=== PATIENT | female | born 1960 | race Caucasian/White ===

== ENCOUNTER 2016-10-16 21:10 | Emergency (ER) ==
[2016-10-17] MEDS ORDERED: XYLOCAINE-MPF 1% INJ ONE (00:10)
[2016-10-17] MEDS ORDERED: DECADRON IM ONE (00:10)
[2016-10-17] MEDS ORDERED: ROCEPHIN IM ONE (00:10)
--- NOTE | 2016-10-17 00:10 | PROVIDER DOCUMENTATION ---
HPI-General Adult - General Chief Complaint: Cold Symptoms Stated Complaint: SORE THROAT/N/V Time Seen by Provider: 10/16/16 23:38 Source: patient Allergies/Adverse Reactions: Patient Allergies Allergy/AdvReac Type Severity Reaction Status Date / Time codeine AdvReac Mild ITCHING Verified 08/28/16 21:32 Home Medications: Home Medication List Medication Instructions Recorded Confirmed Last Taken Type Atenolol/Chlorthalidone 1 each PO DAILY 10/17/13 08/28/16 08/27/16 09:00 History [Atenolol-Chlorthalidone 100-25] Citalopram [Celexa] 40 mg PO BID 10/17/13 08/28/16 08/27/16 09:00 History Ranitidine [Zantac] 150 mg PO DAILY 12/03/13 08/28/16 08/27/16 09:00 History Buspirone HCl 10 mg PO TID 02/17/16 08/28/16 08/27/16 09:00 History Furosemide [Lasix] 20 mg PO DAILY 08/28/16 08/28/16 08/27/16 09:00 History Omeprazole [Prilosec] 40 mg PO DAILY #30 capsule. 08/30/16 Unknown Rx Sucralfate [Carafate Liquid] 1 gm PO Q6H #120 udc 08/30/16 Unknown Rx Azithromycin [Zithromax Z-Carlos] 250 mg PO DIRECTED #1 pkg 10/17/16 Unknown Rx Methylprednisolone [Medrol Dosepak] 4 mg PO DIRECTED #1 package 10/17/16 Unknown Rx - History of Present Illness -Gen Adult Nature of Presenting Problems: Pt is a 56 y/o F c chief complaint of cough, fever, shortness of breath x 5 days c associated body aches and chills. Pt states her sister had the Flu last week and had the same symptoms. On arrival, pt has a low grade fever but appears to be in no distress. Review of Systems - Adult - REVIEW OF SYSTEMS - ADULT Constitutional: reports: see HPI, chills, fever Eyes: reports: no symptoms reported. denies: blurred vision, double vision Ears, Nose, Mouth & Throat: reports: no symptoms reported. denies: ear pain, nose pain, throat pain Cardiovascular: reports: no symptoms reported. denies: chest pain, orthopnea Respiratory: reports: cough. denies: pleurisy, shortness of breath Gastrointestinal: reports: no symptoms reported. denies: abdominal pain, nausea Genitourinary: reports: no symptoms reported. denies: dysuria, hematuria Musculoskeletal: reports: no symptoms reported. denies: joint pain, joint swelling Integumentary: reports: no symptoms reported. denies: hives, itching, rash Neurological: reports: no symptoms reported. denies: numbness, paresthesia Psychiatric: reports: no symptoms reported. denies: anxiety, emotional problems Endocrine: reports: no symptoms reported. denies: cold intolerance, heat intolerance Hematologic/Lymphatic: reports: no symptoms reported. denies: blood clots, low blood count Allergic/Immunologic: reports: no symptoms reported. denies: allergic reactions , food allergy All Other Systems: Reviewed and Negative Past History - Adult - PAST MEDICAL HISTORY-ADULT Review of Records: reports: Old Records Reviewed, Nursing Assessment Review, Medications Reviewed, Social history reviewed & non-contributory. Major Childhood Illnesses: reports: denies history Cardiovascular: reports: HTN Respiratory: reports: denies history Gastrointestinal: reports: denies history Obstetrical/Gynecological: reports: denies history Genitourinary: reports: denies history Musculoskeletal: reports: denies history Neurological: reports: denies history Psychiatric: reports: anxiety, depression Endocrine/Immune: reports: denies history Other Conditions: reports: denies history - PRIOR SURGERIES/PROCEDURES Surgical/Procedure History: reports: cholecystectomy, hysterectomy, tonsillectomy, back/neck - IMMUNIZATION STATUS Childhood Immunizations: See Nurse Assessment Flu Vaccine: See Nurse Assessment - FAMILY HISTORY Family History: reviewed, not pertinent - SOCIAL HISTORY Smoking: denies Substance Use: none/never Alcohol Use Frequency: never Physical Exam-General - PHYSICAL EXAM-ADULT Initial Vital Signs Reviewed: Yes - CONSTITUTIONAL General Appearance: alert, mild distress - EYES Eyes: PERRL/EOMI, pink conjunctivae, fundi clear, no AV nicking - HEAD, EARS, NOSE, MOUTH & THROAT HENMT: normocephalic/atraumatic, moist mucous membranes, normal ENT inspection, TMs normal - NECK Neck: non-tender - RESPIRATORY Respiratory: chest non-tender, lungs clear, normal breath sounds. negative: no pleuratic chest pain, no respiratory distress, no accessory muscle use, respiratory distress, decreased breath sounds, accessory muscle use, crackles, rales, rhonchi, stridor, wheezing, dull on percussion, prolonged expiration, pain on inspiration, plerual rub, retractions, splinting, decreased rate, increased rate, crepitus - CARDIOVASCULAR Cardiovascular: normal peripheral pulses, regular rate, rhythm, no edema - GASTROINTESTINAL (ABDOMEN) Abdominal Exam: normal bowel sounds, non tender, soft - LYMPHATIC Lymphatic: no adenopathy - MUSCULOSKELETAL Back Exam: normal inspection Extremity: normal range of motion, non-tender, normal gait - SKIN Integumentary: normal color, normal turgor, warm/dry - NEUROLOGIC Neurologic: grossly normal, no motor/sensory deficits - PSYCHIATRIC Psych/Mental Status: normal mood/affect, normal thought content, normal thought process, oriented x 3 Progress - PLAN OF CARE/RESULTS Progress/Plan/Lab Results: Orders Category Date Time Status CHEST-2 VIEWS [RAD] Stat Exams 10/16/16 21:[address] Stat Lab 10/16/16 21:[address] Stat Lab 10/16/16 21:15 Completed CefTRIAXONE [Rocephin] Med 10/17/16 00:10 Once 1 gm IM NOW ONE Dexamethasone [Decadron] Med 10/17/16 00:10 Once 10 mg IM NOW ONE Lidocaine 1% Pf [Xylocaine-Mpf 1%] Med 10/17/16 00:10 Once 5 ml INJ NOW ONE Laboratory Tests 10/16/16 10/16/16 21:15 21:15 Influenza A (Rapid) NEGATIVE Influenza B (Rapid) NEGATIVE Group A Strep Rapid NEGATIVE Vital Signs - 24 hr 10/16/16 21:12 Temperature 99.6 F Pulse Rate 75 Respiratory 20 Rate Blood Pressure 142/75 O2 Sat by Pulse 96 Oximetry Departure - Departure Time of Disposition Order: 00:11 DIAGNOSIS: URI (upper respiratory infection) Qualifiers: URI type: unspecified URI Qualified Code(s): J06.9 - Acute upper respiratory infection, unspecified Disposition: HOME 01 Certified Medical Emergency: Emergent Condition: Stable Additional Instructions: ED Follow Up Instructions: You have been treated by a care provider in the Emergency Department. These instructions are being provided to you so you can have an understanding of how to care for yourself upon discharge. Upon discharge from the Emergency Department, you are responsible for making arrangements for follow-up care by a physician of your choice. Take all prescribed medications as directed. Return to the Emergency Department immediately for any new or worsening symptoms. You may call the Physician Referral phone number at [phone] to obtain a list of Physicians who are taking new patients. Prescriptions: Methylprednisolone [Medrol Dosepak] 4 mg PO DIRECTED #1 package Azithromycin [Zithromax Z-Carlos] 250 mg PO DIRECTED #1 pkg Referrals: Marlon Cardoza [Primary Care Provider] - Forms: Return to School/Parent Work Instructions: Azithromycin tablets, Upper Respiratory Infection, Adult, Easy-to -Read, Methylprednisolone tablets Attestation - Physician/ RYNE Attestation Patient care was provided by Advanced Practice Provider:: Yes Advanced Practice Provider:: Amarjit Blackman Advanced Practice Provider documentation review:: The Mid-level provider documentation, treatment plan and medical decision making was reviewed by the physician who agrees with all treatment and medical decision making by the P.
[2016-10-17 00:34] VITALS: BP 117/71
--- NOTE | 2016-10-17 07:39 | Diag Imaging Result Document ---
PROCEDURE NAME: CHEST-2 VIEWS - 10/16/2016 FRONTAL AND LATERAL CHEST, TWO VIEWS: COMPARISON: 08/28/2016. FINDINGS: The lungs are well expanded. The heart is not enlarged. The vessels are not distended. There are no infiltrates. No pleural effusions. IMPRESSION: No pneumonia.
== END 2016-10-17 00:45 | disposition home or self-care (01) ==
LOC: P.ED 21:10
DX: J06.9 Acute upper respiratory infection, unspecified (principal); R05 Cough; R50.9 Fever, unspecified; R06.02 Shortness of breath; I10 Essential (primary) hypertension; Z79.899 Other long term (current) drug therapy
CPT/HCPCS: 71020; 87081; 87430; 87804; 96372; J0696; J1100

== ENCOUNTER 2016-11-08 18:58 | Inpatient (IN) ==
[2016-11-08] MEDS ORDERED: ZOFRAN IV ONE (19:51)
[2016-11-08] MEDS ORDERED: DILAUDID IV ONE (19:51)
[2016-11-08 20:13] LABS: MANUAL DIFF NEEDED? NO
[2016-11-08 20:17] LABS: BASO% 0.7 % (0.0-0.8); EOS% 5.8 % (0.0-10.0); HEMATOCRIT 37.8 % (37.0-47.0); HEMOGLOBIN 12.1 g/dL (12.0-16.0); IMM GRAN# 0.01 X1000 (0.0-0.04); IMM GRAN% 0.1 % (0.0-0.5); LYMPH# 2.64 X1000 (1.2-3.4); LYMPH% 30.6 % (20.5-51.1); MCH 24.4 PG (27-31); MCV 76.2 FL (81-99); MONO# 1.02 X1000 (0.11-0.59); MONO% 11.8 % (1.7-9.3); MPV 9.2 FL (7.4-10.4); PLT 261 X1000 (130-400); RBC 4.96 XMIL (4.2-5.4)
--- NOTE | 2016-11-08 20:32 | EKG Report ---
Test Performed on : 11/08/2016 8:07:14 PM Test Reason : CHEST PAIN Blood Pressure : / mmHG Vent. Rate : 060 BPM Atrial Rate : 060 BPM P-R Int : 152 ms QRS Dur : 080 ms QT Int : 450 ms P-R-T Axes : 030 002 013 degrees QTc Int : 450 ms Normal sinus rhythm. Nonspecific ST and T wave abnormality Abnormal ECG When compared with ECG of 30-AUG-2016 11:02, No significant change was found Unconfirmed Result
[2016-11-08 20:36] LABS: AMYLASE 61 U/L (20-200); LIPASE 27 U/L (13-60)
[2016-11-08 20:51] LABS: AGAP 11; ALBUMIN 4.2 g/dL (3.5-5.0); ALKALINE PHOSPHATASE 62 U/L (32-104); BUN 7 mg/dL (8-22); CALCIUM 9.2 mg/dL (8.8-10.2); CHLORIDE 95 mmol/L (98-107); CK PROFILE 110 U/L (24-173); COSMO 272; GOT 19 U/L (10-30); GPT 14 U/L (10-36); MAGNESIUM 2.1 mg/dL (1.5-2.7); POTASSIUM 2.5 mmol/L (3.5-5.1); SODIUM 137 mmol/L (136-145); TCO2 31 mmol/L (25-35); TOTAL PROTEIN 7.1 g/dL (6.3-8.3)
[2016-11-08] MEDS ORDERED: POTASSIUM CHLORIDE 10 MEQ/SWI 10 MEQ/100 ML IVPB IV ONE (20:52)
[2016-11-08] MEDS ORDERED: NS 1,000 ML ONE (20:54)
[2016-11-08] MEDS ORDERED: NS 1,000 ML IV ONE (20:55)
[2016-11-08 21:04] LABS: INR 0.99 (0.86-1.15); PROTIME 13.4 Seconds (12.1-15.5)
[2016-11-08 21:05] LABS: PTT PL 32.5 Seconds (22.6-43.9)
[2016-11-09] MEDS ORDERED: NS 1,000 ML IV ONE (00:58)
[2016-11-09] MEDS ORDERED: MORPHINE IV PRN ×2 (00:58→07:26)
[2016-11-09] MEDS ORDERED: TYLENOL PO PRN (00:58)
[2016-11-09] MEDS ORDERED: ZOFRAN IV PRN (00:58)
[2016-11-09] MEDS ORDERED: POTASSIUM CHLORIDE 40 MEQ/SWI 40 MEQ/100 ML IVPB IV ONE (01:01)
--- NOTE | 2016-11-09 01:10 | Diag Imaging Result Document ---
PROCEDURE NAME: CT ABD/PELVIS W/ IV CONT ONLY - 11/08/2016 STUDY: CT abdomen and pelvis with intravenous contrast. There is fatty infiltration of the liver. Normal spleen, pancreas, gallbladder, and adrenal glands. Normal enhancement of the kidneys. No hydronephrosis. Normal aorta. No bowel obstruction. Normal appendix. No abscess. The uterus has been removed. No pelvic mass. The urinary bladder is minimally distended. There has been prior surgery to the lower back. IMPRESSION: 1. Mild fatty infiltration of the liver. 2. No bowel obstruction. 3. Normal appendix. 4. No abscess. 5. Hysterectomy. A preliminary report was given at 9:42 p.m.
[2016-11-09 07:30] VITALS: BP 112/72
--- NOTE | 2016-11-09 08:44 | Diag Imaging Result Document ---
PROCEDURE NAME: CHEST-2 VIEWS - 11/08/2016 FRONTAL AND LATERAL CHEST, TWO VIEWS: COMPARISON; 10/16/2016. FINDINGS: The lungs are well expanded. The heart is not enlarged. The vessels are not distended. No pneumonia. No pleural effusions. No free air beneath the diaphragm. IMPRESSION: No acute abnormality.
[2016-11-09] MEDS ORDERED: KLOR-CON PO ONE ×2 (09:08→09:11)
[2016-11-09 09:24] LABS: IRON SATURATION 9 %; TIBC 285 ug/dL; TOTAL IRON 25 ug/dL (49-151); UNBOUND IRON 260 ug/dL (112-346)
[2016-11-09] MEDS ORDERED: TESSALON PO SCH (09:30)
[2016-11-09] MEDS ORDERED: ROBITUSSIN-DM PO PRN (10:02)
--- NOTE | 2016-11-09 13:48 | HISTORY AND PHYSICAL ---
CHIEF COMPLAINT: Nonproductive cough, stating "I have had a cough and cold for about a month. I got better for 2-3 days and then it came back." HISTORY OF PRESENTING ILLNESS: This is a 56-year-old female who initially presented to the ER for a cough and cold symptoms that she has had on and off for about a month that has not improved. Workup showed a potassium of 2.5 and iron of 25. Chest x-ray showed no acute abnormality. Abdomen and pelvic CT showed no bowel obstruction. Normal appendix and no abscesses. She was admitted for further evaluation and treatment. PAST MEDICAL HISTORY: Asthma, bronchitis, hypertension, anxiety, and depression. PAST SURGICAL HISTORY: Back surgery, tonsillectomy, hysterectomy, and esophagus stretch. FAMILY HISTORY: Unremarkable. SOCIAL HISTORY: She currently lives with her . She denies any tobacco, alcohol, or drug use. ALLERGIES: Codeine. HOME MEDICATIONS: 1. Atenolol/chlorthalidone 1 p.o. daily. 2. Buspirone 10 mg p.o. t.i.d. 3. Celexa 40 mg p.o. b.i.d. 4. Lasix 20 mg p.o. daily. 5. Prilosec 40 mg p.o. daily. LABORATORY DATA: White blood cell count of 8.63, hemoglobin of 12.1, hematocrit 37.8, platelets 261,000. PT and INR of 13.4 and 0.99 with a D-dimer of less than 0.22. Sodium of 137, potassium 2.5, chloride 85, CO2 of 31. BUN of 7, creatinine of 0.9. Glucose of 100. Creatine kinase of 110. Troponin of less than 0.010. ProBNP of 190. Amylase of 61, lipase 27. Chest x-ray showed no acute abnormality. Abdomen and pelvic CT showed mild fatty infiltration of the liver. No bowel obstruction. Normal appendix. No abscesses. EKG: Normal sinus rhythm at 60. REVIEW OF SYSTEMS: She denied any fever, chills, blurred vision, dizziness, chest pain. She has had a nonproductive cough. She denies any abdominal pain, constipation, diarrhea, burning or hurting with urination. PHYSICAL EXAMINATION: VITAL SIGNS: On arrival, temperature of 98.3 degrees, pulse 65, respirations 18, blood pressure 149/84, saturating 96% on room air. GENERAL: This is a 56-year-old female who is lying in the bed and answers questions appropriately. HEENT: Normocephalic and atraumatic. Pupils are equal, round, and reactive to light. The extraocular movements are intact. Oropharynx and nares are clear. NECK: Supple. LUNGS: Clear to auscultation bilaterally with equal lung expansion and chest wall movement. HEART: Regular rate and rhythm. No murmurs, rubs, or gallops. ABDOMEN: Soft, nontender, nondistended. Bowel sounds are present x4 quadrants. EXTREMITIES: There is no clubbing, cyanosis, or edema. NEUROLOGICAL: The cranial nerves 2-12 are grossly intact. ADMISSION DIAGNOSES: 1. Upper respiratory infection. 2. Hypokalemia. 3. Hypertension. PLAN: She was admitted, placed on telemetry. She was supplemented with potassium yesterday, and her potassium level this morning came up 3, and we gave her 40 mEq more p.o., gave Robitussin p.r.n. Dictated by STEVEN Erickson for Geovanny Chong MD cc: STEVEN Erickson MD
--- NOTE | 2016-11-09 19:11 | DISCHARGE SUMMARY ---
ADMISSION DATE: 11/09/2016 DISCHARGE DATE: 11/09/2016 ADMISSION DIAGNOSES: 1. Hypokalemia. 2. Upper respiratory infection. 3. Hypertension. 4. Some iron-deficiency anemia. DISCHARGE DIAGNOSES: 1. Hypokalemia. 2. Upper respiratory infection. 3. Hypertension. 4. Some iron-deficiency anemia. SUMMARY OF FINDINGS: This is a 56-year-old female who initially presented to the ER for cough. Workup was essentially negative except she had a potassium of 2.5 that was supplemented in the ER and this a.m. her potassium level came up to 3.0. We gave her another 40 mEq of potassium. Chest x-ray showed no acute abnormality. We did an abdomen and pelvic CT as well that showed no bowel obstruction, normal appendix, no abscesses, mild fatty infiltration of the liver. We gave her some Robitussin p.r.n. for her cough. Her white blood cell count was normal. D-dimer was less than 0.22 so it was felt that she could be discharged home. DISCHARGE MEDICATIONS: Atenolol/chlorthalidone 100/25 one p.o. daily, Tessalon Perles 100 mg p.o. t.i.d. #15, buspirone 10 mg p.o. t.i.d., Celexa 40 mg p.o. b.i.d., Lasix 20 mg p.o. daily, Prilosec 40 mg p.o. daily and potassium 10 mEq p.o. daily #30 with no refills. FOLLOWUP: She will follow up with her primary care physician Glen Cardoza in 1 week. DISCHARGE INSTRUCTIONS: All discharge instructions were reviewed with the patient and she verbalized understanding. TIME SPENT: A 35-minute discharge. Dictated by STEVEN Erickson for Geovanny Chong MD cc: STEVEN Erickson MD
[2016-11-10] MEDS ORDERED: KLOR-CON PO SCH (09:00)
--- NOTE | 2016-12-06 19:19 | ED EKG INTERP ---
This chart was entered by Soo Guillen Scribe, acting as scribe for Michele Allen DO. EKG Interpretation - EKG Time of EKG reading by physician:: 20:07 EKG Read and Signed by:: Michele Allen EKG Interpretation (*Must complete 3 of following elements*): Abnormal Rate: 60 Rhythm: NSR QRS: normal MT Interval: normal ST Wave: non-specific ST changes (AND T WAVE ABNORMALITY) This chart was documented by the indicated scribe, (Soo Guillen Scribe) and accurately reflects the services I performed and decisions made by Alejandro kingston Deepak K., DO, as attested by the provider's signature.
--- NOTE | 2016-12-06 19:22 | PROVIDER DOCUMENTATION ---
This chart was entered by Soo Guillen Scribe, acting as scribe for Michele Allen DO. HPI-Abdominal Pain/GI Problem - General Chief Complaint: Cough Stated Complaint: SOB/COUGH/VOMITING Time Seen by Provider: 11/08/16 19:46 Source: patient Allergies/Adverse Reactions: Patient Allergies Allergy/AdvReac Type Severity Reaction Status Date / Time codeine AdvReac Mild ITCHING Verified 11/15/16 22:57 Home Medications: Home Medication List Medication Instructions Recorded Confirmed Last Taken Type Atenolol/Chlorthalidone 1 each PO DAILY 10/17/13 11/15/16 11/15/16 History [Atenolol-Chlorthalidone 100-25] Citalopram [Celexa] 40 mg PO BID 10/17/13 11/15/16 11/08/16 08:00 History Buspirone HCl 10 mg PO TID 02/17/16 11/15/16 11/08/16 11:55 History Furosemide [Lasix] 20 mg PO DAILY 08/28/16 11/15/16 11/08/16 08:00 History Omeprazole [Prilosec] 40 mg PO DAILY #30 capsule. 08/30/16 11/15/16 11/08/16 08:00 Rx Acetaminophen [Tylenol] 650 mg PO Q6H PRN PRN #0 tablet 11/09/16 11/15/16 Unknown Rx Benzonatate [Tessalon] 100 mg PO 0800,1500,2300 #15 11/09/16 11/15/16 Unknown Rx capsule Potassium Chloride E.r. [Klor-Con] 10 meq PO DAILY #30 tablet 11/09/16 11/15/16 Unknown Rx Albuterol Sulfate [Albuterol 2 puff IH Q4-6H PRN PRN #1 11/15/16 Unknown Rx Sulfate Hfa] hfa.aer.ad Benzonatate [Tessalon] 200 mg PO TID PRN PRN #40 capsule 11/15/16 Unknown Rx Cyclobenzaprine [Flexeril] 10 mg PO TID PRN #20 tablet 11/15/16 Unknown Rx Hydrocodone/Acetaminophen [[place] 1 each PO Q4-6H PRN PRN #20 tablet 11/15/16 Unknown Rx 7.5-325 Tablet] Meloxicam [Mobic] 15 mg PO DAILY PRN #30 tablet 11/15/16 Unknown Rx - History of Present Illness-ABD Nature of Presenting Problems: PT IS A 56YOF PRESENTING TO THE ED C/O ABD PAIN. PT STATES SHE HAS RECENTLY BEEN TREATED FOR URI SYMPTOMS BUT TODAY SHE IS HAVING ABD PAIN, N/V/D, SOB, CONGESTION, AND DRY COUGH. PT DENIES FEVER OR OTHER COMPLAINTS AT THIS TIME. Abdominal Pain Onset Location: reports: epigastric Pain Radiation: reports: no radiation Quality of Pain: reports: aching, cramping Severity in ED: reports: moderate Onset/Duration: reports: 24 hours ago Timing: reports: still present Activities at Onset: reports: light activity Modifying Factors: improves with: nothing Associated Symptoms: reports: chest pain, cough, diarrhea, EENT symptoms, fatigue, malaise, sinus congestion/drainage, nausea, shortness of breath, vomiting. denies: back/neck pain, fever/chills, syncope Last BM: this evening Dark Stools Present?: reports: none noticed Rectal Bleeding: reports: none Rectal Pain: reports: none Emesis Description: reports: none Bruising or Bleeding Gums?: No Similar Symptoms Previously?: No Recently seen or treated by another doctor?: No Review of Systems - Adult - REVIEW OF SYSTEMS - ADULT Constitutional: reports: no symptoms reported Eyes: reports: no symptoms reported Ears, Nose, Mouth & Throat: reports: see HPI, sinus problem, hoarseness. denies : hearing loss Cardiovascular: reports: see HPI, chest pain. denies: palpitations, syncope Respiratory: reports: see HPI, chronic cough, cough, dyspnea on exertion, shortness of breath. denies: excessive sputum production, wheezing Gastrointestinal: reports: see HPI, abdominal pain, diarrhea, nausea, vomiting. denies: constipation Genitourinary: reports: no symptoms reported Musculoskeletal: reports: no symptoms reported Integumentary: reports: no symptoms reported Neurological: reports: no symptoms reported Psychiatric: reports: no symptoms reported Endocrine: reports: no symptoms reported Hematologic/Lymphatic: reports: no symptoms reported Allergic/Immunologic: reports: no symptoms reported All Other Systems: Reviewed and Negative Past History - Adult - PAST MEDICAL HISTORY-ADULT Review of Records: reports: Old Records Reviewed, Nursing Assessment Review, Medications Reviewed, Social history reviewed & non-contributory. Major Childhood Illnesses: reports: denies history Cardiovascular: reports: HTN Respiratory: reports: denies history Gastrointestinal: reports: denies history Obstetrical/Gynecological: reports: denies history Genitourinary: reports: denies history Musculoskeletal: reports: denies history Neurological: reports: denies history Psychiatric: reports: anxiety, depression Endocrine/Immune: reports: denies history Other Conditions: reports: denies history - PRIOR SURGERIES/PROCEDURES Surgical/Procedure History: reports: cholecystectomy, hysterectomy, tonsillectomy, back/neck - IMMUNIZATION STATUS Childhood Immunizations: See Nurse Assessment Flu Vaccine: See Nurse Assessment - FAMILY HISTORY Family History: reviewed, not pertinent - SOCIAL HISTORY Smoking: denies, non-smoker Substance Use: none/never, denies Alcohol Use Frequency: never Living Situation: family Physical Exam-General - PHYSICAL EXAM-ADULT Initial Vital Signs Reviewed: Yes - CONSTITUTIONAL General Appearance: appears well, alert, moderate distress - EYES Eyes: PERRL/EOMI, pink conjunctivae, FUN - HEAD, EARS, NOSE, MOUTH & THROAT HENMT: normocephalic/atraumatic, moist mucous membranes, normal ENT inspection, TMs normal, pharynx normal - NECK Neck: non-tender, full range of motion, supple, normal inspection - RESPIRATORY Respiratory: chest non-tender, lungs clear, normal breath sounds, no pleuratic chest pain, no respiratory distress, no accessory muscle use - CARDIOVASCULAR Cardiovascular: normal peripheral pulses, regular rate, rhythm, no edema, no gallop, no JVD, no murmur - GASTROINTESTINAL (ABDOMEN) Abdominal Exam: normal bowel sounds, soft, no organomegaly, no pulsatile mass, distended, tenderness. 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, grossly normal, no motor/sensory deficits - PSYCHIATRIC Psych/Mental Status: normal mood/affect, normal thought content, normal thought process, oriented x 3 Progress - PLAN OF CARE/RESULTS Progress/Plan/Lab Results: Vital Signs - 8 hr 11/08/16 19:23 Temperature 98.3 F Pulse Rate 65 Respiratory Rate 18 Blood Pressure 149/84 O2 Sat by Pulse Oximetry 96 Orders Category Date Time Status Cardiac Monitoring DIRECTED Care 11/08/16 19:50 Active Saline Loc NOW Care 11/08/16 19:50 Active CHEST-2 VIEWS [RAD] Stat Exams 11/08/16 19:[address] ABD/PELVIS W/ IV CONT ONLY [CT] Stat Exams 11/08/16 19:52 Ordered AMYLASE [CHEM] Stat Lab 11/08/16 19:51 Ordered CBC WITH ELECTRONIC DIFF [HEME] Stat Lab 11/08/16 19:50 Ordered CK PROFILE [SP CHEM] Stat Lab 11/08/16 19:50 Ordered COMPREHENSIVE METABOLIC PANEL [CHEM] Stat Lab 11/08/16 19:50 Ordered D-DIMER PL [COAG] Stat Lab 11/08/16 19:50 Ordered LIPASE [CHEM] Stat Lab 11/08/16 19:51 Ordered MAGNESIUM [CHEM] Stat Lab 11/08/16 19:50 Ordered PRO B-NATRIURETIC PEPTIDE Stat Lab 11/08/16 19:[address]IME WITH INR [address] [COAG] Stat Lab 11/08/16 19:[address] [COAG] Stat Lab 11/08/16 19:50 Ordered TROPONIN T Stat Lab 11/08/16 19:50 Ordered UA NIMS W/REFLEX CULT PL [URINALYSIS] Stat Lab 11/08/16 19:51 Ordered Hydromorphone [Dilaudid] Med 11/08/16 19:51 Discontinued 0.5 mg IV NOW ONE Ondansetron [Zofran] Med 11/08/16 19:51 Discontinued 4 mg IV NOW ONE EKG [EKG] Stat Ther 11/08/16 19:50 Ordered Result Diagrams: 11/08/16 20:10 11/09/16 08:14 Departure - Departure Time of Disposition Decision: 13:25 DIAGNOSIS: Persistent cough, Low blood potassium Disposition: HOME 01 Certified Medical Emergency: Emergent Condition: Stable - Critical Care Note This patient required my direct & personal management of CC.: No This chart was documented by the indicated scribe, (Soo Guillen Scribe) and accurately reflects the services I performed and decisions made by me, Michele Allen DO, as attested by the provider's signature.
== END 2016-11-09 11:57 | disposition home or self-care (01) ==
LOC: P.ED 18:58 → P.MEDSURG 18:58 → OBSVTOIN 19:23
PROVIDERS: ATTEND Internal Medicine

== ENCOUNTER 2019-08-27 12:49 | Inpatient (IN) ==
[2019-08-27 13:42] LABS: BASO# 0.03 X1000 (0.0-0.2); BASO% 0.2 % (0.0-0.8); EOS% 0.7 % (0.0-10.0); HEMATOCRIT 43.3 % (37.0-47.0); HEMOGLOBIN 13.8 g/dL (12.0-16.0); IMM GRAN# 0.03 X1000 (0.0-0.04); IMM GRAN% 0.2 % (0.0-0.5); LYMPH# 1.72 X1000 (1.2-3.4); LYMPH% 12.3 % (20.5-51.1); MCH 25.7 PG (27-31); MCHC 31.9 g/dL (33-37); MCV 80.8 FL (81-99); MONO# 0.83 X1000 (0.11-0.59); MONO% 5.9 % (1.7-9.3); MPV 10.2 FL (7.4-10.4); NEUT# 11.28 X1000 (1.4-6.5); NEUT% 80.7 % (42.2-75.2); PLT 249 X1000 (130-400); RBC 5.36 XMIL (4.2-5.4); RDW 14.4 % (11.5-14.5); WBC 13.99 X1000 (4.8-10.8)
[2019-08-27 13:51] LABS: ESTIMATED GFR > 60
[2019-08-27 13:58] LABS: AGAP 12; ALBUMIN 4.2 g/dL (3.5-5.0); ALKALINE PHOSPHATASE 104 U/L (32-104); BUN 8 mg/dL (8-22); CALCIUM 9.3 mg/dL (8.8-10.2); CHLORIDE 102 mmol/L (98-107); COSMO 279; CREATININE 0.9 mg/dL (0.5-0.9); GLUCOSE 148 mg/dL (70-104); GOT 104 U/L (10-30); GPT 42 U/L (10-36); POTASSIUM 4.3 mmol/L (3.5-5.1); SODIUM 139 mmol/L (136-145); TCO2 25 mmol/L (25-35); TOTAL PROTEIN 7.3 g/dL (6.3-8.3)
[2019-08-27 14:25] LABS: LIPASE > 3000 U/L (13-60)
[2019-08-27] MEDS ORDERED: ZOFRAN IV ONE (14:50)
[2019-08-27] MEDS ORDERED: MORPHINE IV ONE (14:50)
[2019-08-27] MEDS ORDERED: NS 1,000 ML IV ONE (15:49)
--- NOTE | 2019-08-27 16:41 | Diag Imaging Result Doc PS360 ---
EXAM: CT ABD/PELVIS W/IV CONT ONLY - 08/27/2019 HISTORY: ABD PAIN, LIPASE 3000, N.V TECHNIQUE: CT abdomen/pelvis with intravenous contrast COMPARISON: 04/26/2019 FINDINGS: There are artifacts from the patient's arms at body habitus which mildly limit detail. The visualized lung bases are clear. There are peripancreatic inflammatory changes which are suspicious for acute bronchitis. There is no pancreatic necrosis or pseudocyst identified. The gallbladder is moderately distended. The gallbladder villegas appear mildly thickened. There are no calcified gallstones or gross pericholecystic inflammatory changes identified. There are no substantial abnormalities of the liver, spleen, or adrenal glands. The bilateral kidneys enhance homogeneously. There is no hydronephrosis. There are no substantially enlarged lymph nodes identified. There is an apparent 1.3 cm uncomplicated diverticulum which arises at the junction of the third of fourth portion of the duodenum. There is no evidence of bowel obstruction. The appendix is unremarkable. There is no substantial bowel wall thickening identified. There is no free air or abscess identified. IMPRESSION: Peripancreatic inflammation suspicious for acute pancreatitis. No discrete pancreatic necrosis or pseudocyst. Moderately distended gallbladder, with mildly thickened villegas. No calcified gallstones. No gross pericholecystic inflammation. This exam was performed using automated exposure control, adjustment of mA or kV according to patient size, and/or use of iterative reconstruction technique. Electronically signed by Christopher Chavira 08/27/2019 4:38 PM
--- NOTE | 2019-08-27 16:45 | PROVIDER DOCUMENTATION ---
This chart was entered by Monique Cardoza Scribe, acting as scribe for Vita Fields CRNP. HPI-Abdominal Pain/GI Problem - General Chief Complaint: Abdominal Pain Stated Complaint: N/V/D Time Seen by Provider: 08/27/19 14:45 Source: patient Allergies/Adverse Reactions: Patient Allergies Allergy/AdvReac Type Severity Reaction Status Date / Time bupropion [From Wellbutrin] Allergy Unknown Verified 04/19/19 00:44 Sulfa (Sulfonamide Allergy Unknown Verified 04/19/19 00:43 Antibiotics) codeine AdvReac Mild ITCHING Verified 11/15/16 22:57 Home Medications: Home Medication List Medication Instructions Recorded Confirmed Last Taken Type Amlodipine [Norvasc] 5 mg PO DAILY 04/19/19 04/19/19 Unknown History Aripiprazole 2 mg PO DAILY 04/19/19 04/19/19 Unknown History Atenolol/Chlorthalidone 1 tab PO DAILY 04/19/19 04/19/19 Unknown History [Atenolol-Chlorthalidone 100-25] Buspirone HCl 10 mg PO TID 04/19/19 04/19/19 Unknown History Lorazepam 0.5 mg PO HS 04/19/19 04/19/19 Unknown History - History of Present Illness-ABD Nature of Presenting Problems: Patient is a 59 year old female who presents with epigastric abdominal pain. States nausea and vomiting. Reports symptoms started this morning. Does not report diarrhea. Abdominal Pain Onset Location: reports: epigastric Pain Radiation: reports: no radiation Quality of Pain: reports: aching Severity in ED: reports: mild Onset/Duration: reports: this morning Timing: reports: still present Activities at Onset: reports: light activity Associated Symptoms: reports: nausea, vomiting Bruising or Bleeding Gums?: No Similar Symptoms Previously?: No Recently seen or treated by another doctor?: No Review of Systems - Adult - REVIEW OF SYSTEMS - ADULT Constitutional: reports: no symptoms reported Eyes: reports: no symptoms reported Ears, Nose, Mouth & Throat: reports: no symptoms reported Cardiovascular: reports: no symptoms reported Respiratory: reports: no symptoms reported Gastrointestinal: reports: see HPI, abdominal pain (epigastric), nausea, vomiting Genitourinary: reports: no symptoms reported Musculoskeletal: reports: no symptoms reported Integumentary: reports: no symptoms reported Neurological: reports: no symptoms reported Psychiatric: reports: no symptoms reported Endocrine: reports: no symptoms reported Hematologic/Lymphatic: reports: no symptoms reported Allergic/Immunologic: reports: no symptoms reported All Other Systems: Reviewed and Negative Past History - Adult - PAST MEDICAL HISTORY-ADULT Review of Records: reports: Old Records Reviewed, Nursing Assessment Review, Medications Reviewed, Social history reviewed & non-contributory. Major Childhood Illnesses: reports: denies history Cardiovascular: reports: HTN, hyperlipidemia Respiratory: reports: asthma Gastrointestinal: reports: denies history Obstetrical/Gynecological: reports: denies history Genitourinary: reports: denies history Musculoskeletal: reports: denies history Neurological: reports: denies history Psychiatric: reports: anxiety, depression Endocrine/Immune: reports: denies history Other Conditions: reports: denies history - PRIOR SURGERIES/PROCEDURES Surgical/Procedure History: reports: cholecystectomy, hysterectomy, tonsillectomy, back/neck - IMMUNIZATION STATUS Childhood Immunizations: See Nurse Assessment Flu Vaccine: See Nurse Assessment - FAMILY HISTORY Family History: reviewed, not pertinent - SOCIAL HISTORY Smoking: denies Substance Use: denies Physical Exam-General - PHYSICAL EXAM-ADULT Initial Vital Signs Reviewed: Yes - CONSTITUTIONAL General Appearance: alert, no apparent distress. negative: lethargic - HEAD, EARS, NOSE, MOUTH & THROAT HENMT: normocephalic/atraumatic, moist mucous membranes. negative: angioedema - RESPIRATORY Respiratory: chest non-tender, lungs clear, normal breath sounds. negative: wheezing - CARDIOVASCULAR Cardiovascular: regular rate, rhythm. negative: tachycardia, systolic murmur - GASTROINTESTINAL (ABDOMEN) Abdominal Exam: normal bowel sounds, soft, tenderness (diffuse). negative: guarding - MUSCULOSKELETAL Extremity: non-tender, normal inspection. negative: pedal edema - SKIN Integumentary: normal color, normal turgor, warm/dry. negative: pallor - NEUROLOGIC Neurologic: grossly normal. negative: aphasia, facial droop - PSYCHIATRIC Psych/Mental Status: normal mood/affect, normal thought content, normal thought process, oriented x 3. negative: anxious Progress - PLAN OF CARE/RESULTS Progress/Plan/Lab Results: Vital Signs - 8 hr 08/27/19 12:55 Temperature 97.8 F Pulse Rate 63 Respiratory Rate 18 Blood Pressure 125/80 O2 Sat by Pulse Oximetry 96 Laboratory Results - last 24 hr 08/27/19 08/27/19 13:12 13:12 WBC 13.99 H RBC 5.36 Hgb 13.8 Hct 43.3 MCV 80.8 L MCH 25.7 L MCHC 31.9 L RDW Std Deviation 14.4 Plt Count 249 MPV 10.2 Immature Gran % (Auto) 0.2 Neut % (Auto) 80.7 H Lymph % (Auto) 12.3 L [place] % (Auto) 5.9 Eos % (Auto) 0.7 Baso % (Auto) 0.2 Immature Gran # (Auto) 0.03 Neut # (Auto) 11.28 H Lymph # (Auto) 1.72 [place] # (Auto) 0.83 H Eos # (Auto) 0.10 Baso # (Auto) 0.03 Sodium 139 Potassium 4.3 Chloride 102 Carbon Dioxide 25 Anion Gap 12 BUN 8 Creatinine 0.9 Estimated GFR/1.73 m2 > 60 BUN/Creatinine Ratio 9 Glucose 148 H Calculated Osmolality 279 Calcium 9.3 Total Bilirubin 0.50 AST 104 H ALT 42 H Alkaline Phosphatase 104 Total Protein 7.3 Albumin 4.2 Globulin 3.0 Albumin/Globulin Ratio 1.0 Lipase > 3000 H Orders Category Date Time Status Saline Loc NOW Care 08/27/19 14:49 Active NPO Diet 08/27/19 13:[address] ABD/PELVIS W/IV CONT ONLY [CT] Stat Exams 08/27/19 14:49 Ordered CBC WITH DIFF [HEME] Stat Lab 08/27/19 13:12 Completed COMPREHENSIVE METABOLIC PANEL [CHEM] Stat Lab 08/27/19 13:12 Completed LIPASE [CHEM] Stat Lab 08/27/19 13:12 Completed Morphine Med 08/27/19 14:50 Discontinued 4 mg IV NOW ONE Ondansetron [Zofran] Med 08/27/19 14:50 Discontinued 4 mg IV NOW ONE Abd Pain/OB <20 weeks Stat Oth 08/27/19 12:59 Ordered EWA'S CRITERIA= 1 Result Diagrams: 08/27/19 13:12 08/27/19 13:12 - CT/MRI 1 CT Study: Abdomen, Pelvis Impression: See EMR Report (EXAM: CT ABD/PELVIS W/IV CONT ONLY - 08/27/2019 HISTORY: ABD PAIN, LIPASE 3000, N.V TECHNIQUE: CT abdomen/pelvis with intravenous contrast COMPARISON: 04/26/2019 FINDINGS: There are artifacts from the patient's arms at body habitus which mildly limit detail. The visualized lung bases are clear. There are peripancreatic inflammatory changes which are suspicious for acute bronchitis. There is no pancreatic necrosis or pseudocyst identified. The gallbladder is moderately distended. The gallbladder villegas appear mildly thickened. There are no calcified gallstones or gross pericholecystic inflammatory changes identified. There are no substantial abnormalities of the liver, spleen, or adrenal glands. The bilateral kidneys enhance homogeneously. There is no hydronephrosis. There are no substantially enlarged lymph nodes identified. There is an apparent 1.3 cm uncomplicated diverticulum which arises at the junction of the third of fourth portion of the duodenum. There is no evidence of bowel obstruction. The appendix is unremarkable. There is no substantial bowel wall thickening identified. There is no free air or abscess identified. IMPRESSION: Peripancreatic inflammation suspicious for acute pancreatitis. No discrete pancreatic necrosis or pseudocyst. Moderately distended gallbladder, with mildly thickened villegas. No calcified gallstones. No gross pericholecystic inflammation. This exam was performed using automated exposure control, adjustment of mA or kV according to patient size, and/or use of iterative reconstruction technique. Electronically signed by Christopher Chavira 08/27/2019 4:38 PM 08/27/19 1638 Interpreting Physician: Christopher Chavira MD Dictated Date/Time: 08/27/193 cc: Vita Fields; None,PCP) - CONSULTS/PCP/HOSPITALIST Notification #1 *Consult/PCP/Hospitalist*: DR LOVE Time Discussed: 16:44 Consult Disposition: Admit Departure - Departure Date of Disposition Decision: 08/27/19 Time of Disposition Decision: 16:43 DIAGNOSIS: Acute pancreatitis Disposition: ADMITTED INPATIENT 09 Certified Medical Emergency: Emergent Condition: Stable Referrals and Follow-Ups: None,PCP [Primary Care Provider] - - Critical Care Note This patient required my direct & personal management of CC.: No Attestation - Physician/ RYNE Attestation Patient care was provided by Advanced Practice Provider:: Yes Advanced Practice Provider:: Vita Fields Advanced Practice Provider documentation review:: The Mid-level provider documentation, treatment plan and medical decision making was reviewed by the physician who agrees with all treatment and medical decision making by the [facility]. The physician spent face to face time with patient:: No Advanced Practice Provider documentation review:: Supervising physician onsite and consulted in the evaluation and care of this patient. The physician did not have a face to face encounter with the patient. This chart was documented by the indicated scribe, (Monique Cardoza Scribe) and accurately reflects the services I performed and decisions made by , Vita Fields CRNP, as attested by the provider's signature.
[2019-08-27] MEDS ORDERED: DILAUDID IV PRN ×2 (17:48→23:07)
[2019-08-27] MEDS ORDERED: TYLENOL PO PRN (17:49)
[2019-08-27] MEDS ORDERED: ZOFRAN IV PRN ×2 (17:49→23:09)
[2019-08-27] MEDS ORDERED: NS 1,000 ML IV SCH (18:00)
[2019-08-27] MEDS ORDERED: ZOSYN 3.375 GM in NS 50 ML IV SCH (18:00)
--- NOTE | 2019-08-27 19:53 | HISTORY AND PHYSICAL ---
HISTORY OF PRESENT ILLNESS: Patient seen and examined in the ER. She has a chief complaint of nausea and vomiting. She presented with abdominal pain. States she has never had pain like this before. Never had a history of pancreatitis. Does not drink. She denies diabetes. ALLERGIES: Wellbutrin, sulfa, and codeine causing itching. MEDICATIONS: 1. Norvasc. 2. Abilify. 3. Atenolol. 4. Chlorthalidone 100/25. 5. BuSpar. 6. Lorazepam. REVIEW OF SYSTEMS: Positive epigastric abdominal pain, nausea, vomiting. Denies any hematemesis, hematochezia. Denies melena, dysuria, frequency, urgency. Denies constipation. Denies fevers, chills. Denies headaches, blurred vision. PAST MEDICAL HISTORY: 1. Hypertension. 2. Hyperlipidemia. 3. Depression. SURGICAL HISTORY: 1. Cholecystectomy. 2. Hysterectomy. 3. Tonsillectomy. 4. Neck surgery. FAMILY HISTORY: Noncontributory. SOCIAL HISTORY: Patient is . She does not smoke or drink or use illicit substances. PHYSICAL EXAMINATION: VITAL SIGNS: Reviewed. Temperature 97 degrees, pulse 63, respiratory rate 18, BP 125/80, saturating 96% on room air. GENERAL: Patient is awake, pleasant. She is in no distress. She is somewhat ill-appearing secondary to her pain. HEENT: Normocephalic. NECK: Supple. CARDIOVASCULAR: Regular rate. CHEST: Clear. ABDOMEN: Soft. Tender in the epigastric region with very minimal palpation. EXTREMITIES: Moves all extremities. No edema. NEUROLOGIC: No changes. ASSESSMENT: 1. Acute pancreatitis. 2. Leukocytosis. 3. Hyperglycemia, with blood glucose 148, with no previous history of diabetes. 4. Epigastric pain. 5. Nausea and vomiting. 6. Hypertension. 7. Depression. PLAN: We are going to admit patient to the hospital, treat her for pancreatitis, keep her n.p.o., use Dilaudid intravenously as needed. We will place her on intravenous fluids. Recheck labs in the a.m. to include amylase and lipase. We will hold her Abilify as it is certainly possible that could be the cause of her acute pancreatitis. cc: Harman Burton MD
[2019-08-28] MEDS ORDERED: DILAUDID IV ONE (01:16)
[2019-08-28 06:20] LABS: HEMATOCRIT 38.9 % (37.0-47.0); HEMOGLOBIN 12.1 g/dL (12.0-16.0); MCH 25.8 PG (27-31); MCHC 31.1 g/dL (33-37); MCV 82.9 FL (81-99); MPV 10.2 FL (7.4-10.4); RBC 4.69 XMIL (4.2-5.4); RDW 14.7 % (11.5-14.5); WBC 10.54 X1000 (4.8-10.8)
[2019-08-28 06:28] LABS: AGAP 11; ALBUMIN 3.6 g/dL (3.5-5.0); ALKALINE PHOSPHATASE 84 U/L (32-104); AMYLASE 504 U/L (20-200); BUN 9 mg/dL (8-22); CALCIUM 8.7 mg/dL (8.8-10.2); CHLORIDE 105 mmol/L (98-107); CHOLESTEROL 188 mg/dL (0-200); COSMO 281; ESTIMATED GFR 56; GLUCOSE 111 mg/dL (70-104); GOT 28 U/L (10-30); GPT 27 U/L (10-36); HDL 51 mg/dL (45-65); LDL 110 mg/dL; MAGNESIUM 1.9 mg/dL (1.5-2.7); POTASSIUM 4.2 mmol/L (3.5-5.1); SODIUM 141 mmol/L (136-145); TCO2 25 mmol/L (25-35); TOTAL PROTEIN 6.7 g/dL (6.3-8.3); TRIGLYCERIDES 134 mg/dL (35-135); VLDL 27 mg/dL
[2019-08-28 06:50] LABS: LIPASE 788 U/L (13-60)
[2019-08-28 07:06] LABS: HEMOGLOBIN A1C 5.2 % (4.8-6.0)
[2019-08-28] MEDS: DILAUDID IV PRN ×4 (08:20→22:20)
[2019-08-28] MEDS: ZOSYN 3.375 GM in NS 50 ML IV SCH ×3 (10:17→20:24)
[2019-08-28] MEDS: CELEXA PO SCH ×2 (10:17→20:23)
[2019-08-28] MEDS: ZOFRAN IV PRN (11:07)
[2019-08-28] MEDS: TYLENOL PO PRN (11:41)
[2019-08-28] MEDS: NS 1,000 ML IV SCH ×2 (11:41→22:20)
--- NOTE | 2019-08-28 16:55 | PROGRESS NOTE ---
DATE: 08/28/2019 SUBJECTIVE: Patient notes she is still having significant abdominal pain and cramping. Denies any fevers or chills. Denies any hematemesis or melena. Denies any diarrhea. She states even attempting to drink anything makes her abdomen hurt worse. OBJECTIVE: Vital Signs: Temperature 97, pulse 64, respiratory rate 18, and BP 134/78. General: Patient is pleasant in no distress. HEENT: Normocephalic. Neck: Supple. Cardiovascular: Regular rate. Chest: Clear. Abdomen: Soft. Extremities: Moves all extremities. ASSESSMENT: 1. Acute pancreatitis. 2. Leukocytosis. 3. Hyperglycemia. A1c is pending. 4. Epigastric pain. 5. Hypertension. 6. Depression. PLAN: We are going to continue patient in the hospital. We are not going to advance her diet as she is still requiring multiple doses of Dilaudid, and still having significant pain. cc: Harman Burton MD
[2019-08-28] MEDS: ATIVAN PO SCH (20:23)
[2019-08-28] MEDS: PROMETRIUM PO SCH (20:24)
[2019-08-29] MEDS: DILAUDID IV PRN ×4 (03:05→20:40)
[2019-08-29] MEDS: ZOSYN 3.375 GM in NS 50 ML IV SCH ×4 (03:05→20:44)
[2019-08-29] MEDS: ZOFRAN IV PRN ×4 (03:05→20:40)
[2019-08-29] MEDS: NS 1,000 ML IV SCH ×3 (03:06→16:10)
[2019-08-29] MEDS: CELEXA PO SCH ×2 (08:44→20:42)
--- NOTE | 2019-08-29 12:36 | PROGRESS NOTE ---
DATE: 08/29/2019 SUBJECTIVE: The patient had significant episodes of nausea and vomiting last night. In fact, she had several episodes of vomiting. This morning, she still feels more nauseated. She notes last night that she attempted to make it to the restroom but the vomiting hit so quickly that all she could do was sit on the side of the bed and throw up several times. Currently, she denies any fevers. States her abdomen still hurts, now more diffusely than just in the epigastric region. She still has her gallbladder. Denies any symptoms prior to coming to the hospital. PHYSICAL EXAMINATION: Temperature 97, pulse 70, respiratory rate 18, BP 133/77. General: Patient is pleasant, although she is somewhat ill-appearing. HEENT: Normocephalic. Neck: Supple. Cardiovascular: Regular rate. No murmurs. Chest: Clear and nonlabored. Abdomen: Soft. Diffusely tender. Positive but hyperactive bowel sounds. Extremities: Moves all extremities. Neurologic: No focal changes. ASSESSMENT: 1. Acute pancreatitis. Her amylase and lipase have decreased from 1500 to 504 and from greater than 3000 to 788. 2. Nausea with projectile vomiting. 3. Leukocytosis has resolved. White count has dropped from 14 down to 10. 4. Hyperglycemia, although patient does not have a history of diabetes. In fact, her A1c is 5.2. PLAN: Given that she is continued to require pain medication and actually worsened with nausea and vomiting last night and this morning despite improving amylase, lipase, and improving leukocytosis, we are going to check an ultrasound of her abdomen. We are going to transfer her to [facility]. If ultrasound is normal, we are going to have GI evaluate and consider EGD. cc: Harman Burton MD
[2019-08-29] MEDS: TYLENOL PO PRN (13:59)
--- NOTE | 2019-08-29 14:07 | Diag Imaging Result Doc PS360 ---
EXAM: US ABDOMEN-COMPLETE INDICATION: pancreatitis COMPARISON: None. FINDINGS: The gallbladder appears normal with no stones, wall thickening, or pericholecystic fluid. The common bile duct is normal in diameter. Sonographic Kohli's sign was reported to be negative. The liver is grossly unremarkable. Portal venous flow is hepatopetal. The pancreas is obscured by bowel gas. No discrete fluid collections are identified in the region. The aorta and IVC are grossly unremarkable. The spleen is unremarkable. The kidneys are grossly unremarkable. IMPRESSION: Pancreas is obscured. Essentially unremarkable abdominal ultrasound, otherwise. Electronically signed by Amarjit Mix 08/29/2019 2:05 PM
[2019-08-29] MEDS: ATIVAN PO SCH (20:41)
[2019-08-29] MEDS: PROMETRIUM PO SCH (20:44)
[2019-08-29] MEDS ORDERED: DILAUDID IV PRN (22:59)
[2019-08-30] MEDS: ZOFRAN IV PRN ×3 (02:53→20:13)
[2019-08-30] MEDS: ZOSYN 3.375 GM in NS 50 ML IV SCH ×4 (02:53→20:13)
[2019-08-30] MEDS: NS 1,000 ML IV SCH ×5 (02:53→20:14)
[2019-08-30] MEDS: CELEXA PO SCH ×3 (08:20→22:00)
--- NOTE | 2019-08-30 09:17 | PROGRESS NOTE ---
DATE: 08/30/2019 SUBJECTIVE: The patient reports feeling still nauseated. Not vomiting anymore apparently last night. Denies any fever or chills. Abdominal pain is under control with medication that she is receiving. OBJECTIVE: Vital Signs: Temperature 98.1 degrees, heart rate 84, respiratory rate 16, blood pressure 147/72, O2 saturation 96% on 3 L nasal cannula. General: This is a 59-year-old, female, lying in bed in no acute distress. Cardiovascular: S1, S2 heard. No murmurs, gallops, or rubs. Regular rate and rhythm. Respiratory: Clear bilaterally to auscultation. No work of breathing or using accessory muscles. Abdomen: Soft, mildly tender to palpation in the epigastric area, but there are no signs of peritoneal irritation. Bowel sounds present. No organomegaly. Extremities: No clubbing, cyanosis, or edema. Peripheral pulses present in both legs. Neurological: The patient is alert and oriented x3. Moves all 4 extremities. LABORATORY DATA: There are no labs from today. We will order new ones today. ASSESSMENT AND PLAN: Acute pancreatitis. Clinically, this patient is stable. Apparently, she has been sent to [facility] because she continues to have recurrent nausea and vomiting. Her labs show improvement of lipase. I think this patient is getting better clinically. Gastroenterology has been consulted yesterday. Will see what they have to say. She denies any alcohol consumption, and we did not see any gallstones in the abdominal ultrasound. At this point, will continue with conservative management with intravenous fluids and pain medications. cc: Inderjit Nicole MD
[2019-08-30] MEDS ORDERED: SODIUM CHLORIDE 0.9% INJ SCH (09:45)
[2019-08-30 10:14] LABS: BASO# 0.02 X1000 (0.0-0.2); BASO% 0.2 % (0.0-0.8); EOS# 0.12 X1000 (0.0-0.7); EOS% 1.2 % (0.0-10.0); HEMATOCRIT 33.8 % (37.0-47.0); HEMOGLOBIN 10.3 g/dL (12.0-16.0); IMM GRAN# 0.02 X1000 (0.0-0.04); IMM GRAN% 0.2 % (0.0-0.5); LYMPH# 1.31 X1000 (1.2-3.4); LYMPH% 13.4 % (20.5-51.1); MCH 25.9 PG (27-31); MCHC 30.5 g/dL (33-37); MCV 85.1 FL (81-99); MONO# 0.83 X1000 (0.11-0.59); MONO% 8.5 % (1.7-9.3); MPV 10.3 FL (7.4-10.4); NEUT# 7.51 X1000 (1.4-6.5); NEUT% 76.5 % (42.2-75.2); PLT 173 X1000 (130-400); RBC 3.97 XMIL (4.2-5.4); RDW 14.4 % (11.5-14.5); WBC 9.81 X1000 (4.8-10.8)
[2019-08-30 10:36] LABS: AGAP 9; ALB/GLOB RATIO 1.3; ALBUMIN 3.4 g/dL (3.5-5.0); ALKALINE PHOSPHATASE 69 U/L (32-104); BUN 6 mg/dL (8-22); CALCIUM 8.5 mg/dL (8.8-10.2); CHLORIDE 106 mmol/L (98-107); COSMO 278; CREATININE 0.8 mg/dL (0.5-0.9); ESTIMATED GFR > 60; GLUCOSE 90 mg/dL (70-104); GOT 15 U/L (10-30); GPT 13 U/L (10-36); POTASSIUM 3.8 mmol/L (3.5-5.1); SODIUM 141 mmol/L (136-145); TCO2 26 mmol/L (25-35); TOTAL BILIRUBIN 0.77 mg/dL (0.20-1.00)
[2019-08-30] MEDS ORDERED: MIRALAX PO ONE (10:44)
--- NOTE | 2019-08-30 15:35 | GASTROENTEROLOGY CONSULTATION ---
DATE: 08/30/2019 REASON FOR CONSULTATION: Persistent emesis. HISTORY OF PRESENT ILLNESS: Ms. Lopez is a 59-year-old female who is morbidly obese. The patient had come on Friday with complaints of abdominal pain rating it as 10/10, describing as crampy and stabbing pain with nausea, vomiting and diarrhea. The patient complained of chills, shortness of breath and cough. She has denied any fever. The patient's lipase and amylase on admission were elevated. Amylase was 1528, and lipase was greater than 3000. She currently has nausea, but she has denied any vomiting, and she has also denied having any bowel movement since Friday. She does have a history of hypertension, depression, anxiety, and difficulty swallowing with multiple dilations. The last time she was seen by GI as an outpatient was on 10/04/2016, and an EGD was done for her dysphagia and GERD. The findings at that time were that she had Schatzki's ring that was dilated, hiatal hernia in the esophagus, mild nonerosive gastritis which was found in the antrum and body of the stomach. Two biopsies were taken. The cardia, fundus and incisura were normal, and the duodenal bulb was normal. Stomach biopsy showed that she had inactive gastritis, mild to moderate, and it was negative for H. pylori. The patient's abdominal ultrasound yesterday showed that her pancreas is obscured, essentially unremarkable abdominal ultrasound otherwise. Her abdomen and pelvis CT on 08/27/2019 showed that she has peripancreatic inflammation suspicious of acute pancreatitis. No discrete pancreatic necrosis or pseudocyst. PAST MEDICAL HISTORY: Hypertension, depression, anxiety, dysphagia. PAST SURGICAL HISTORY: Partial hysterectomy, tonsillectomy, neck surgery and back surgery. FAMILY HISTORY: Mom had breast cancer, ovarian cancer and heart disease. Dad had heart attack. SOCIAL HISTORY: The patient is , 4 kids. She does not smoke or drink or use any illicit drugs. ALLERGIES: She is allergic to bupropion, sulfa and codeine. HOME MEDICATIONS: Amlodipine 10 mg p.o. daily, atenolol 50 mg p.o. twice a day, Celexa 20 mg p.o. twice a day, Estrace 0.5 mg p.o. at bedtime, hydroxyzine pamoate 25 mg p.o. every 6 hours as needed, Singulair 10 mg p.o. at bedtime, potassium 20 mEq p.o. daily, progesterone 100 mg p.o. at bedtime, lorazepam 2 mg p.o. at bedtime, omeprazole 40 mg p.o. daily. REVIEW OF SYSTEMS: As per HPI, otherwise 12-point review of systems is negative. PHYSICAL EXAMINATION: Vital signs: Temperature 98.1, pulse 84, respirations 16, blood pressure 147/72, oxygen saturation 92% on 3 L nasal cannula. The patient's weight is 250 pounds. BMI is 44.3 kg per meter sq. General: She is alert and oriented x3, in no acute distress and morbidly obese. Answering questions appropriately. HEENT: Pale conjunctivae. No icterus. PERRL. Neck: Supple. Lungs: Clear to auscultation. Cardiovascular: Regular rate and rhythm. Abdomen: Obese, soft, tender in the epigastric area. Extremities: No clubbing. No cyanosis. No edema. Pedal pulses are 2+ bilaterally. Neurologic: She is alert and oriented x3 and nonfocal. Cranial nerves II through XII grossly intact. DIAGNOSTIC DATA: WBC was 10.81, RBC was 3.97, hemoglobin 10.3, hematocrit is 33.8, platelet count is 173. Sodium 141, potassium 3.8, chloride 106, carbon dioxide 26, anion gap 9, BUN is 6, creatinine 0.8, glucose 90, calcium 8.5, total bilirubin is 0.77, AST is 15, ALT is 13, alkaline phosphatase is 69. Albumin is 3.4. IMAGING: Abdominal ultrasound yesterday showed pancreas is obscured, essentially unremarkable. Abdomen and pelvis CT showed peripancreatic inflammation suspicious for acute pancreatitis and no discrete pancreatic necrosis or pseudocyst. IMPRESSION AND PLAN: Pancreatitis Nausea and vomiting GERD Obesity PLAN:Ms. Lopez is a 59-year-old female who is morbidly obese, history of hypertension, depression and anxiety. GI has been consulted for nausea and vomiting and abdominal pain. The patient's abdominal ultrasound has shown that her pancreas is obscured, essentially unremarkable abdominal ultrasound, but her abdomen and pelvis CT on 08/27/2019 has shown that she has peripancreatic inflammation suspicious for acute pancreatitis. Will check IgG 4 levels. Triglyceride levels are normal. We will continue the patient with Protonix 40 mg IV daily. She has not had a bowel movement since Friday, We will start her on MiraLAX. She is receiving IV fluids normal saline at 125 mL. We have ordered some labs for her, lipase and amylase, and will also check her IgG subclasses. We will continue to monitor the patient, provide supportive care and follow the plan of care per PCP. This plan was discussed with Dr. Brantley. Thank you for your consult. Please call us for any further questions or concerns. Dictated by STEVEN Celaya for Jimmie Brantley MD cc: Jimmie Brantley MD I have seen and examined the patient myself and I agree with the above plan of care. Please call us with any questions or concerns. JOHNIE
[2019-08-30 16:08] LABS: AMYLASE 59 U/L (20-200); LIPASE 17 U/L (13-60)
[2019-08-30] MEDS: PROTONIX IV SCH (20:13)
[2019-08-30] MEDS: PROMETRIUM PO SCH ×2 (20:14→23:00)
[2019-08-30] MEDS: ATIVAN PO SCH ×2 (20:14→23:00)
[2019-08-31] MEDS: NS 1,000 ML IV SCH ×2 (04:22→14:47)
[2019-08-31] MEDS: ZOSYN 3.375 GM in NS 50 ML IV SCH ×2 (04:22→09:09)
[2019-08-31 07:19] LABS: BASO# 0.01 X1000 (0.0-0.2); BASO% 0.1 % (0.0-0.8); EOS# 0.13 X1000 (0.0-0.7); EOS% 1.2 % (0.0-10.0); HEMATOCRIT 37.2 % (37.0-47.0); HEMOGLOBIN 11.6 g/dL (12.0-16.0); IMM GRAN# 0.02 X1000 (0.0-0.04); IMM GRAN% 0.2 % (0.0-0.5); LYMPH# 1.58 X1000 (1.2-3.4); LYMPH% 15.1 % (20.5-51.1); MCH 25.8 PG (27-31); MCHC 31.2 g/dL (33-37); MCV 82.9 FL (81-99); MONO# 0.87 X1000 (0.11-0.59); MONO% 8.3 % (1.7-9.3); MPV 10.1 FL (7.4-10.4); NEUT# 7.84 X1000 (1.4-6.5); NEUT% 75.1 % (42.2-75.2); PLT 189 X1000 (130-400); RBC 4.49 XMIL (4.2-5.4); RDW 14.1 % (11.5-14.5); WBC 10.45 X1000 (4.8-10.8)
[2019-08-31 07:51] LABS: AGAP 13; ALB/GLOB RATIO 1.2; ALBUMIN 3.7 g/dL (3.5-5.0); ALKALINE PHOSPHATASE 84 U/L (32-104); BUN 3 mg/dL (8-22); CALCIUM 8.8 mg/dL (8.8-10.2); CHLORIDE 100 mmol/L (98-107); COSMO 274; CREATININE 0.7 mg/dL (0.5-0.9); ESTIMATED GFR > 60; GLUCOSE 93 mg/dL (70-104); GOT 16 U/L (10-30); GPT 13 U/L (10-36); POTASSIUM 3.1 mmol/L (3.5-5.1); SODIUM 139 mmol/L (136-145); TCO2 26 mmol/L (25-35); TOTAL BILIRUBIN 1.29 mg/dL (0.20-1.00); TOTAL PROTEIN 6.9 g/dL (6.3-8.3)
[2019-08-31] MEDS: CELEXA PO SCH ×2 (09:09→20:49)
[2019-08-31] MEDS: MIRALAX PO SCH (09:09)
[2019-08-31] MEDS: LR 1,000 ML IV SCH ×2 (14:58→23:47)
[2019-08-31] MEDS: TYLENOL PO PRN ×2 (15:06→20:49)
--- NOTE | 2019-08-31 15:08 | PROGRESS NOTE ---
DATE: 08/31/2019 SUBJECTIVE: Ms. Lopez refers to be doing well. She said the pain has improved but when she ate this afternoon, she did have some pain. OBJECTIVE: Vital Signs: Blood pressure is 162/67, pulse of 80, respirations are 16, temperature is 98.5 degrees. General Examination: Ms. Lopez is a 59-year-old, morbidly obese, female. She is in bed. No distress. HEENT: Mucosa is pink and moist. Anicteric. Acyanotic. Neck: Supple. Chest: Good air entry bilaterally. There were no crepitations, no rhonchi. Cardiovascular: Regular rate and rhythm. No murmurs, no rubs, no gallops. GI: Abdomen is soft. It is globally distended but nontender. Bowel sounds present. There is no guarding or peritoneal reaction. Extremities: No pedal edema. Distal pulses present. 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 There is no focal deficit. Laboratory Data: CBC is unremarkable. Chemistry shows potassium of 3.1. The patient's C- reactive protein is 79.5. Imaging studies including a CT scan of the abdomen did show peripancreatic inflammation, suspicious for acute pancreatitis. No pancreatic necrosis or pseudocyst. Ultrasound did not show any abnormality of the gallbladder and patient denies any alcohol use. ASSESSMENT: 1. Acute pancreatitis of unclear etiology. The patient does not seem to have any gallbladder stones and she denies alcohol use. Her triglyceride levels are also within normal range. At this point, we are unsure of what might have caused her acute pancreatitis. Her medication list from home has been reviewed. I do not see any that could potentially do it. IgG levels have been ordered to rule out an autoimmune pancreatitis. We will also get an MRI of the abdomen with pancreatic protocol to rule out any organic pathologies including an intrapancreatic duct abnormality. 2. Morbid obesity with body mass index of 44.3. Weight management is advised. 3. Hypertension. 4. Constipation. Patient is on bowel regimen. PLAN: In general, I think Ms. Lopez is doing well. She has been started on a low-fat diet today. I have switched her fluid to lactate and I have discontinued her current antimicrobial coverage. We will get an MRI to rule out any local organic disease. IgG4 is still pending. cc: Randy Cardoza MD
--- NOTE | 2019-08-31 16:43 | GASTROENTEROLOGY PROGRESS NOTE ---
DATE: 08/31/2019 SUBJECTIVE: Ms. Lopez is a 59-year-old female resting in bed. Patient has denied any nausea and vomiting and her abdominal pain is also she just had some mild abdominal pain. We have advanced her diet to low-fat diet. Vital signs: Temperature 98.1 degrees, pulse 77, respirations 20, blood pressure 170/66, oxygen saturation 95% on room air, patient's weight is 250 pounds, BMI is 44.3 kg/m2. General: She is alert, oriented x3 in no acute distress. HEENT: Pale conjunctivae, no icterus. The neck supple. Lungs: Clear to auscultation. Cardiovascular: Regular rate and rhythm. Abdomen: Obese, soft, tender in the epigastric area. Extremities: No clubbing, no cyanosis and pedal pulses 2+ present bilaterally. Neurologic: She is alert, oriented x3. LABORATORY DATA: WBCs are 10.45, hemoglobin 11.6, hematocrit is 37.2, platelet count 189,000. Sodium 139, potassium 3.1, chloride 100, carbon dioxide 26, anion gap 13, BUN 3, creatinine 0.7, glucose 93, calcium 8.8, total bilirubin 1.29, AST 16, ALT 13, alkaline phos 84. IMPRESSION AND PLAN: 1. Pancreatitis. 2. Nausea, vomiting. 3. Gastroesophageal reflux disease . 4. Abdominal pain. 5. Obesity. PLAN: Ms. Lopez is 59-year-old female who is morbidly obese with a history of hypertension, depression and anxiety. GI is following her for nausea, vomiting and abdominal pain. Patient currently has denied having any nausea, vomiting but has some mild abdominal pain in the epigastric area. We waiting for her IgG lab results, we have advanced her diet to low- fat diet. Patient is on Protonix 40 mg IV daily, she is on lactated Ringer's at 125 mL IV fluids. We will continue to monitor the patient and follow the plan of care per PCP. This plan was discussed with Dr. Robbins. Please call us for any further questions or. Dictated by STEVEN Celaya for Nino Robbins MD [facility]
[2019-08-31] MEDS: ATIVAN PO SCH (20:49)
[2019-08-31] MEDS: PROTONIX IV SCH (21:47)
[2019-08-31] MEDS: PROMETRIUM PO SCH (21:47)
[2019-09-01] MEDS: LR 1,000 ML IV SCH ×3 (06:52→16:38)
[2019-09-01 07:43] LABS: BASO# 0.02 X1000 (0.0-0.2); BASO% 0.2 % (0.0-0.8); EOS% 2.3 % (0.0-10.0); HEMOGLOBIN 11.9 g/dL (12.0-16.0); IMM GRAN# 0.02 X1000 (0.0-0.04); IMM GRAN% 0.2 % (0.0-0.5); LYMPH# 1.52 X1000 (1.2-3.4); LYMPH% 17.5 % (20.5-51.1); MCH 25.9 PG (27-31); MCHC 32.2 g/dL (33-37); MCV 80.6 FL (81-99); MONO# 0.67 X1000 (0.11-0.59); MONO% 7.7 % (1.7-9.3); MPV 9.7 FL (7.4-10.4); NEUT# 6.28 X1000 (1.4-6.5); NEUT% 72.1 % (42.2-75.2); PLT 198 X1000 (130-400); RBC 4.59 XMIL (4.2-5.4); WBC 8.71 X1000 (4.8-10.8)
[2019-09-01 07:55] LABS: AGAP 11; ALB/GLOB RATIO 1.1; ALBUMIN 3.3 g/dL (3.5-5.0); ALKALINE PHOSPHATASE 73 U/L (32-104); BUN 2 mg/dL (8-22); CALCIUM 8.9 mg/dL (8.8-10.2); CHLORIDE 100 mmol/L (98-107); COSMO 277; CREATININE 0.7 mg/dL (0.5-0.9); ESTIMATED GFR > 60; GLUCOSE 92 mg/dL (70-104); GOT 12 U/L (10-30); GPT 11 U/L (10-36); POTASSIUM 2.8 mmol/L (3.5-5.1); SODIUM 141 mmol/L (136-145); TCO2 30 mmol/L (25-35); TOTAL BILIRUBIN 0.64 mg/dL (0.20-1.00); TOTAL PROTEIN 6.4 g/dL (6.3-8.3)
[2019-09-01] MEDS ORDERED: ATIVAN IV ONE (08:00)
--- NOTE | 2019-09-01 11:03 | Diag Imaging Result Doc PS360 ---
EXAM: MRI /MRCP ABDOMEN W/WO CONTRAST INDICATION: Acute pancreatitis TECHNIQUE: COMPARISON: CT dated 08/27/2019 no prior MRI is available for comparison. FINDINGS: There is mild inflammatory stranding around the pancreatic tail consistent with acute pancreatitis. No discrete abscess is appreciated. The gallbladder is unremarkable. No discrete filling defects are identified in the common bile duct to indicate ductal stones. The common bile duct is normal in diameter. The liver, spleen, adrenal glands, kidneys, and visualized abdominal segments of the GI tract are grossly unremarkable on this study. IMPRESSION: 1.Mild inflammatory stranding associated with the pancreas consistent with known acute pancreatitis. 2.No discrete common bile duct filling defects identified to indicate ductal stones. Electronically signed by Amarjit Mix 09/01/2019 11:01 AM
[2019-09-01] MEDS: MIRALAX PO SCH (11:33)
[2019-09-01] MEDS: CELEXA PO SCH ×2 (11:33→21:25)
[2019-09-01] MEDS: TYLENOL PO PRN (16:36)
--- NOTE | 2019-09-01 17:13 | PROGRESS NOTE ---
DATE: 09/01/2019 I have seen and examined Ms. Stephanie Lopez today. She refers to be doing well. She said her abdominal pain is getting better. She has not had any more nausea. She says she tolerated her diet this morning and this afternoon despite she did feel some pain. OBJECTIVE: Vital signs: Blood pressure is 152/65, pulse of 75, respiration is 18, temperature 98.2 degrees. Patient is saturating 98%. General: Ms. Lopez is a 59-year-old, female, morbidly obese with a BMI of 44.3. She is in bed in no distress. Mucosa is pink and moist. Anicteric. Acyanotic. Neck: Supple. Chest: Good air entry bilaterally. There was no crepitation, no rhonchi. Cardiovascular: Regular rate and rhythm. No murmurs, no rubs, no gallops. GI: Abdomen is soft. It is globally distended, but nontender. Bowel sounds are present. No guarding. No rebound.Extremities: No pedal edema. Distal pulses present. 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 There is no focal deficit. LABORATORY DATA: CBC is reviewed. There is some mild microcytic anemia. Chemistry also shows potassium 2.4. C-reactive protein is down to 62.97. DIAGNOSTIC STUDIES: An MRI of the abdomen this morning shows mild inflammatory stranding associated with pancreas consistent with a known acute pancreatitis. There was no discrete common bile duct filling defect or any stones. ASSESSMENT: 1. Acute pancreatitis of unclear etiology. So far, CT scan, ultrasound of the right upper quadrant, MRI of the pancreas have all been unremarkable. The patient could potentially have a sludge in the gallbladder that has gone away. Hopefully, she does not get any more episode of pancreatitis. If she does, I think she will need to undergo prophylactic gallbladder removal. 2. Morbid obesity with BMI of 44.3 with management advised. 3. Hypertension. The patient has been started back on her home medications. 4. Constipation, improving. The patient had 2 bowel movements today. PLAN: So, in general, I think Ms. Lopez is doing well. She still remains with pain. We are going to continue monitoring this. She is tolerating her diet, which is a good thing. Hopefully, tomorrow we might be able to discharge her if she continues to improve. cc: Randy Cardoza MD
--- NOTE | 2019-09-01 18:19 | GASTROENTEROLOGY PROGRESS NOTE ---
DATE: 09/01/2019 SUBJECTIVE: Ms. Lopez is a 59-year-old female. She was getting ready to go for her MRI. The patient mentioned that she was feeling better. She has denied any nausea or vomiting, but she does have some generalized abdominal tenderness. She was able to tolerate a low-fat diet well . According to the record, she had 7 bowel movements yesterday but she has denied having any today. OBJECTIVE: Vital Signs: Temperature 98.8 degrees, pulse 67, respirations 16, blood pressure 137/63, oxygen saturation 94% on room air. The patient's weight is 250 pounds. BMI is 44.3 kg/m2. General: She is alert, oriented x3, morbidly obese, and in no acute distress. HEENT: Pale conjunctivae. No icterus. PERRL. Neck: Supple. Lungs: Clear to auscultation. Cardiovascular: Regular rate and rhythm. Abdomen: Obese, soft. Generalized tenderness. Hypoactive bowel sounds heard in all 4 quadrants. Extremities: No clubbing. No cyanosis. No edema. Pedal pulses 2+, present bilaterally. Neurologic: She is alert, oriented x3. LABORATORY DATA: WBCs are 8.71, RBC is 4.59, hemoglobin 11.9, hematocrit is 37.0, platelet count is 198,000. Sodium is 141, potassium is 2.8, chloride is 100, carbon dioxide 30, anion gap is 11, BUN is 2, creatinine is 0.7, glucose 92, calcium is 8.9, total bilirubin is 0.64, AST 12, ALT 11, alkaline phosphatase 73, albumin is 3.3. IMAGING: Patient had an abdominal MRI done today. It showed that she had mild inflammatory stranding associated with pancreas consistent with known acute pancreatitis. No discrete common bile duct filling defects identified to indicate ductal stone. IMPRESSIONS PLAN: - Acute pancreatitis - N/V - GERD - Morbid obesity - Anemia, unspecified - HTN - Constipation PLAN: Ms. Lopez is a 59-year-old female who is morbidly obese with a history of hypertension, depression, and anxiety. GI is following her for her nausea, vomiting, and abdominal pain. The patient currently denies any nausea and vomiting, but still has some mild generalized abdominal tenderness. The patient's IgG subclass results have come in and they are all within normal limits. Her MRI has shown no common bile duct filling defects or ductal stones identified. The patient is able to tolerate her low-fiber diet well. She has denied having any problems. We will continue her with PPI daily. She is on IV fluids, lactated Ringers at 125 mL/h. We will continue to provide supportive care to the patient and follow the plan of care per PCP. This plan was discussed with Dr. Robbins. Please call us for any further questions or concerns. Dictated by STEVEN Celaya for Nino Robbins MD Physician Attestation I have seen and examined the patient. I have discussed and reviewed the note by Kristina HARRIS and agree with findings and plan as documented. In brief, Ms. Lopez is a 59 year old woman with morbid obesity, HTN, constipation who presented with acute pancreatitis from unknown etiology. No stones, normal TG, no etoh, divisum, stricture, or mass on imaging. Patient denies pain and tolerating diet. Recommend low fat diet for 2 weeks. Follow-up in GI clinic in 4-6 weeks. Will sign off. Please call with questions. JOHNIE
[2019-09-01] MEDS: ATIVAN PO SCH (21:25)
[2019-09-01] MEDS: PROMETRIUM PO SCH (21:25)
[2019-09-01] MEDS: PROTONIX IV SCH (21:25)
[2019-09-02 06:54] LABS: BASO# 0.02 X1000 (0.0-0.2); BASO% 0.2 % (0.0-0.8); EOS# 0.21 X1000 (0.0-0.7); EOS% 2.5 % (0.0-10.0); HEMATOCRIT 37.1 % (37.0-47.0); HEMOGLOBIN 12.1 g/dL (12.0-16.0); LYMPH% 20.3 % (20.5-51.1); MCH 26.1 PG (27-31); MCHC 32.6 g/dL (33-37); MONO# 0.71 X1000 (0.11-0.59); MONO% 8.5 % (1.7-9.3); MPV 9.8 FL (7.4-10.4); NEUT# 5.72 X1000 (1.4-6.5); NEUT% 68.5 % (42.2-75.2); PLT 196 X1000 (130-400); RBC 4.64 XMIL (4.2-5.4); WBC 8.36 X1000 (4.8-10.8)
[2019-09-02 07:22] LABS: AGAP 13; ALB/GLOB RATIO 0.9; ALBUMIN 3.1 g/dL (3.5-5.0); ALKALINE PHOSPHATASE 64 U/L (32-104); BUN 4 mg/dL (8-22); CALCIUM 8.9 mg/dL (8.8-10.2); CHLORIDE 100 mmol/L (98-107); COSMO 280; CREATININE 0.7 mg/dL (0.5-0.9); ESTIMATED GFR > 60; GLUCOSE 96 mg/dL (70-104); GOT 11 U/L (10-30); GPT 9 U/L (10-36); SODIUM 142 mmol/L (136-145); TCO2 29 mmol/L (25-35); TOTAL BILIRUBIN 0.49 mg/dL (0.20-1.00); TOTAL PROTEIN 6.4 g/dL (6.3-8.3)
[2019-09-02] MEDS: CELEXA PO SCH (09:30)
[2019-09-02] MEDS: MIRALAX PO SCH (09:31)
[2019-09-02 11:58] VITALS: BP 135/61
--- NOTE | 2019-09-03 23:39 | DISCHARGE SUMMARY ---
ADMISSION DATE: 08/27/2019 DISCHARGE DATE: 09/02/2019 DISPOSITION: Home. FOLLOW-UP: Will be with Dr. Brantley. CONSULTATION: During this admission GI was consulted. Patient was seen by Dr. Brantley. INVASIVE PROCEDURES DONE DURING THIS ADMISSION: None. IMAGING STUDIES OF SIGNIFICANCE: 1. CT scan of the abdomen and pelvis showed peripancreatic inflammation suspicious for acute pancreatitis. No discrete pancreatic necrosis or pseudocyst. Moderately distended gallbladder. No calcified stone. No gross pericholecystic inflammation. 2. Ultrasound of the abdomen showed unremarkable CBD. Negative Kohli's sonographic sign. An MRI of the abdomen showed mild inflammatory stranding associated with pancreas consistent with known acute pancreatitis. No discrete CBD filling defects. ADMISSION DIAGNOSIS: 1. Acute pancreatitis. 2. Leukocytosis. 3. Hyperglycemia. 4. Epigastric pain. 5. Depression. DIAGNOSIS AT THE TIME OF DISCHARGE: 1. Acute pancreatitis of unclear etiology. Imaging studies including CT scan of the abdomen, MRI were negative. Ultrasound of the gallbladder and the CBD was negative. IgG 4 was negative and patient denies alcohol use. 2. Morbid obesity with BMI of 44.3. 3. Hypertension. 4. Constipation, improved. 5. History of depression. DISCHARGE MEDICATIONS: 1. Amlodipine 10 mg p.o. daily. 2. Atenolol 50 mg b.i.d. 3. Celexa 20 mg b.i.d. 4. Estradiol 0.5 p.o. at bedtime. 5. Hydroxyzine 25 mg p.o. q. 6 p.r.n. 6. Montelukast 10 mg p.o. at bedtime. 7. Progesterone. 8. Lorazepam 2 mg p.o. at bedtime. 9. Omeprazole 40 mg p.o. daily. PRESENTING COMPLAINT: Abdominal pain. HISTORY OF PRESENTING COMPLAINT: Ms. Lopez is a 59-year-old female with multiple medical comorbidities including hypertension, dyslipidemia, and depression, came to the emergency room because of abdominal pain. She initially presented to [place] where she was evaluated and was found to have acute pancreatitis of unclear etiology. She was transferred to [facility] for higher level of care. HOSPITAL COURSE: Ms. Lopez was admitted to the medical floor. She was started on IV fluids, kept n.p.o. initially. GI consult was placed. Ms. Lopez was seen by the GI group during the hospital course. Her workup including an MRI of the abdomen, IgG 4 looking for other possible etiologies of her IgG were all unremarkable. During the hospital course Ms. Lopez, however, continued to improve. Abdominal pain subsided. She was started on clears and advanced to full liquid diet. The day of discharge, she was able to tolerate GI soft diet. Ms. Lopez is therefore deemed stable for discharge. At the time of the discharge, her blood pressure is 135/61, pulse of 63, respirations 16, temperature 97.9 degrees. We think Ms. Lopez is clinically stable. Her discharge laboratory data has also been reviewed. CBC was unremarkable except for microcytosis. The chemistry is also reviewed. The patient's C-reactive protein has been trending down. All the discharge instructions have been discussed with Ms. Lopez. She has been advised to follow up with GI and also weight loss advised. Time spent for discharge is 35 minutes. cc: MD Jimmie Pantoja MD
== END 2019-09-02 12:59 | disposition home or self-care (01) | DRG 439 ==
LOC: P.ED 12:49 → P.MEDSURG 20:59 → SUATTDRO 20:59 → 4N 08-29 22:21
PROVIDERS: ATTEND Internal Medicine